=== PATIENT | female | born 1960 | race African-American/Black ===

== ENCOUNTER → 2017-01-26 | Outpatient (CLI) | payer BC ==
[~2017-01-26] MED LIST: AMOXICILLIN 8751 TAB PO; HCTZ; HCTZ12.5TAB PO; LOTENSIN HCT 101 TAB PO; LOTREL 10 MG-201 CAP PO; LOTREL 5 MG-101 CAP PO; PERCOCET 325 MG1 TA2 PO; PRAVACHOL 40MG40 MG PO
== END ==
LOC: MC.RAD 14:54
DX: Z12.31 Encounter for screening mammogram for malignant neoplasm of breast (principal)

== ENCOUNTER 2017-04-27 01:23 | Emergency (ER) | payer BC ==
[~2017-04-27] VITALS: Ht 157.5 cm; Wt 84.1 kg
[2017-04-27 01:26] VITALS: TEMP 97.8
[2017-04-27 02:41] VITALS: BP 177/107; PULSE 69
== END 2017-04-27 03:14 | disposition home or self-care (01) ==
LOC: COL.ER 01:23
DX: R04.0 Epistaxis (principal); I10 Essential (primary) hypertension; F17.200 Nicotine dependence, unspecified, uncomplicated

== ENCOUNTER → 2018-02-19 | Outpatient (CLI) | payer BC | LOC: MC.RAD 13:42 | DX: Z12.31 Encounter for screening mammogram for malignant neoplasm of breast (principal) ==

== ENCOUNTER → 2019-02-21 | Outpatient (CLI) | payer BC | LOC: MC.RAD 13:45 | DX: Z12.31 Encounter for screening mammogram for malignant neoplasm of breast (principal) ==

== ENCOUNTER → 2020-02-20 | Outpatient (CLI) | payer BC | LOC: MC.RAD 16:38 | DX: Z12.31 Encounter for screening mammogram for malignant neoplasm of breast (principal) ==

== ENCOUNTER → 2021-02-22 | Outpatient (CLI) | payer BC | LOC: MC.RAD 14:17 | DX: Z12.31 Encounter for screening mammogram for malignant neoplasm of breast (principal) ==

== ENCOUNTER → 2022-03-17 | Outpatient (CLI) | payer BC | LOC: MC.RAD 13:48 | DX: Z12.31 Encounter for screening mammogram for malignant neoplasm of breast (principal) ==